=== PATIENT | male | born 1975 | race Caucasian/White ===

== ENCOUNTER 2023-10-08 06:29 | Emergency (ER) | payer BC ==
[2023-10-08] MEDS ORDERED: Sodium Chloride 0.9% 10 ML Syringe FLUSH PRN (06:39)
[2023-10-08] MEDS ORDERED: Aspirin 81 MG Tab.Chew PO ONE (06:46)
[2023-10-08 07:29] LABS: BASOPHILS PERCENT AUTO 0.7 % (0.0-1.0); EOSINOPHILS ABSOLUTE AUTO 0.1 K/mm3 (0.0-0.4); HEMATOCRIT 48.3 % (42.0-52.0); IMMATURE GRAN ABSOLUTE AUTO 0.01 K/mm3 (0.00-0.05); IMMATURE GRAN PERCENT AUTO 0.2 % (0.0-0.4); LYMPHOCYTES ABSOLUTE AUTO 1.4 K/mm3 (1.0-4.8); LYMPHOCYTES PERCENT AUTO 30.2 % (24.0-44.0); MEAN CORPUSCULAR HEMOGLOBIN 28.6 pg (28.0-32.0); MEAN CORPUSCULAR HGB CONC 33.1 g/dl (32.0-36.0); MEAN CORPUSCULAR VOLUME 86.4 fl (83.0-99.0); MEAN PLATELET VOLUME 9.9 fl (9.4-12.4); MONOCYTES ABSOLUTE AUTO 0.3 K/mm3 (0.0-0.8); MONOCYTES PERCENT AUTO 6.7 % (0.0-8.0); NEUTROPHILS ABSOLUTE AUTO 2.8 K/mm3 (1.8-7.7); NEUTROPHILS PERCENT AUTO 60.2 % (41.0-71.0); PLATELET COUNT,PLT 282 K/mm3 (150-400); RED BLOOD CELL COUNT 5.59 M/mm3 (4.52-5.90); WHITE BLOOD CELL COUNT,WBC 4.61 K/mm3 (3.9-11.3)
[2023-10-08 07:37] LABS: ALBUMIN 3.9 g/dl (3.4-5.0); BILIRUBIN TOTAL 0.9 mg/dL (0.2-1.0); BUN/CREATININE RATIO 8.2 (14-18); CALCIUM 9.2 mg/dL (8.5-10.1); CREATININE 1.1 mg/dL (0.7-1.3); EST CRCL DRUG DOSING (CG) 83.88 mL/min; PROTEIN TOTAL,TP 7.7 g/dl (6.4-8.2)
[2023-10-08 08:52] LABS: HEMOGLOBIN A1C >14.0 %
== END 2023-10-08 10:15 | disposition left against medical advice (07) ==
LOC: JD.ED 06:29
DX: R07.89 Other chest pain (principal)
CPT/HCPCS: 36415; 71045; 80053; 83036; 83735; 83880; 84484; 85025; 93005; 99285; A9270; J3490; 93010; 99284